=== PATIENT | female | born 1970 | race Caucasian/White ===

== ENCOUNTER 2022-06-02 12:29 | Inpatient (IN) ==
[2022-06-02 13:15] LABS: Basophils # 0.1 10*3/uL (0.0-0.2); Basophils % 1.1 % (0.0-0.8); Eosinophils # 0.2 10*3/uL (0.0-0.87); Eosinophils % 2.5 % (0.00-10.9); Hematocrit 50.1 VOL% (35.7-47.0); Hemoglobin 16.5 GM/DL (12.0-16.0); Immature Granulocytes % 0.1 %; Immature Granulocytes Absolute 0.01 #; Lymphocytes % 37.5 % (21.3-54.2); Mean Corpuscular HGB Conc 32.9 GM/DL (32-36); Mean Platelet Volume 9.2 FL (9.6-12.0); Monocytes # 0.8 10*3/uL (0.11-0.8); Monocytes % 10.2 % (1.7-12.7); Neutrophils % 48.6 % (38.7-73.9); Platelet Count 306 T/CUMM (130-400); Red Blood Count 5.69 MC/CUMM (3.8-5.5); Red Cell Distribution Width 14.6 % (9.3-17.3); White Blood Count 7.9 T/CUMM (4-12)
[2022-06-02 13:30] LABS: Alanine Aminotransferase 19 U/L (13-56); Albumin 3.7 G/DL (3.4-5.0); Alkaline Phosphatase 65 U/L (45-117); Aspartate Amino Transferase 14 U/L (0-37); Bilirubin,Total < 0.39 MG/DL (0.20-1.00); Blood Urea Nitrogen 9 MG/DL (7-18); Calcium 9.1 MG/DL (8.5-10.1); Carbon Dioxide 28 MMOL/L (21-32); Chloride 111 MMOL/L (98-107); Glucose 96 MG/DL (74-106); Osmolality,Calculated 277.4 MOS/KG (273-304); Potassium 3.9 MMOL/L (3.5-5.1); Sodium 140 MMOL/L (136-145); Total Protein 7.8 G/DL (6.4-8.2)
[2022-06-02 13:34] LABS: PT Patient Result 11.1 SECS (10.5-12.0); Partial Thromboplastin Time 28.5 SECS (23.7-32.9)
[2022-06-02 13:51] LABS: Bacteria,Urine Occasional /HPF (Few); Mucus,Urine Occasional /LPF (Occasional); RBC,Urine 6 /HPF (0-4)
[2022-06-02 13:56] LABS: Basophils # 0.1 10*3/uL (0.0-0.2); Basophils % 1.4 % (0.0-0.8); Eosinophils # 0.2 10*3/uL (0.0-0.87); Eosinophils % 2.2 % (0.00-10.9); Hematocrit 46.9 VOL% (35.7-47.0); Hemoglobin 15.6 GM/DL (12.0-16.0); Immature Granulocytes % 0.1 %; Immature Granulocytes Absolute 0.01 #; Lymphocytes # 2.8 10*3/uL (1.4-4.0); Lymphocytes % 36.9 % (21.3-54.2); Mean Corpuscular HGB Conc 33.3 GM/DL (32-36); Mean Corpuscular Volume 87.8 FL (87-102); Mean Platelet Volume 9.4 FL (9.6-12.0); Monocytes # 0.9 10*3/uL (0.11-0.8); Monocytes % 11.3 % (1.7-12.7); Neutrophils % 48.1 % (38.7-73.9); Platelet Count 309 T/CUMM (130-400); Red Blood Count 5.34 MC/CUMM (3.8-5.5); Red Cell Distribution Width 14.6 % (9.3-17.3); White Blood Count 7.7 T/CUMM (4-12)
[2022-06-02 13:56] LABS: Barbiturates Screen,Urine Negative (Negative); Benzodiazepines Screen,Urine Positive (Negative); Bilirubin,Urine Negative (Negative); Blood, Urine Moderate mg/dL (Negative); Cannabinoid Screen,Urine Negative (Negative); Glucose,Urine (UA) Negative (Negative); Ketones,Urine Trace mg/dL (Negative); Nitrite,Urine Negative (Negative); Opiate Screen,Urine Negative (Negative); Phencyclidine Screen,Urine Negative (Negative); Protein,Urine Negative (Negative); Urine Appearance Clear (Clear); Urine Color Yellow (Yellow); Urine Urobilinogen 0.2 eU/dL (<2.0); Urine pH >= 1.0 (4.5-8.0)
[2022-06-02] MEDS ORDERED: SIMETHICONE CHEW 125 MG TABLET PO PRN (16:11)
[2022-06-02] MEDS ORDERED: DOCUSATE SODIUM 100 MG CAPSULE PO PRN (16:11)
[2022-06-02] MEDS ORDERED: ACETAMINOPHEN 325 MG TABLET PO PRN (16:11)
[2022-06-02] MEDS ORDERED: GLUCAGON 1 MG VIAL IM PRN (16:11)
[2022-06-02] MEDS ORDERED: ONDANSETRON 4 MG/2 ML VIAL IV PRN (16:11)
[2022-06-02] MEDS ORDERED: hydrALAZINE 20 MG/1 ML VIAL IV PRN (16:11)
[2022-06-02] MEDS ORDERED: DEXTROSE 10% 250 ML BAG IV PRN (16:23)
[2022-06-02] MEDS ORDERED: FLUTICASONE 50 MCG NASAL SPRAY 16 GM BOTTLE BOTH NARES PRN (16:23)
[2022-06-02] MEDS: CLOPIDOGREL 75 MG TABLET PO SCH (16:43)
[2022-06-02] MEDS: LACTATED RINGERS 1,000 ML IV SCH (16:43)
[2022-06-02] MEDS: ASPIRIN EC 325 MG TABLET PO SCH (16:43)
[2022-06-02] MEDS ORDERED: ALBUTEROL 2.5 MG/3 ML NEB RESP TX PRN (16:44)
[2022-06-02 17:19] LABS: Thyroid Stimulating Hormone 0.711 uIU/ml (0.358-3.74)
[2022-06-02] MEDS: ENOXAPARIN 40 MG/0.4 ML SYRINGE SUBCUT SCH (17:20)
[2022-06-02] MEDS: ROSUVASTATIN 20 MG TABLET PO SCH (20:41)
[2022-06-03] MEDS: LACTATED RINGERS 1,000 ML IV SCH ×2 (03:58→16:49)
[2022-06-03 05:20] LABS: Basophils # 0.1 10*3/uL (0.0-0.2); Basophils % 0.9 % (0.0-0.8); Eosinophils # 0.2 10*3/uL (0.0-0.87); Eosinophils % 2.6 % (0.00-10.9); Hematocrit 42.9 VOL% (35.7-47.0); Immature Granulocytes % 0.2 %; Immature Granulocytes Absolute 0.02 #; Lymphocytes # 4.2 10*3/uL (1.4-4.0); Lymphocytes % 46.9 % (21.3-54.2); Mean Corpuscular HGB Conc 32.6 GM/DL (32-36); Monocytes # 0.7 10*3/uL (0.11-0.8); Monocytes % 7.8 % (1.7-12.7); Neutrophils % 41.6 % (38.7-73.9); Platelet Count 249 T/CUMM (130-400); Red Blood Count 4.82 MC/CUMM (3.8-5.5); Red Cell Distribution Width 14.4 % (9.3-17.3)
[2022-06-03 05:37] LABS: Alanine Aminotransferase 21 U/L (13-56); Albumin 2.9 G/DL (3.4-5.0); Alkaline Phosphatase 59 U/L (45-117); Aspartate Amino Transferase 18 U/L (0-37); Bilirubin,Total < 0.39 MG/DL (0.20-1.00); Blood Urea Nitrogen 12 MG/DL (7-18); Calcium 8.1 MG/DL (8.5-10.1); Carbon Dioxide 28 MMOL/L (21-32); Chloride 109 MMOL/L (98-107); Cholesterol 68 MG/DL (50-200); Glucose 103 MG/DL (74-106); HDL Cholesterol 23 MG/DL (40-60); Osmolality,Calculated 280.3 MOS/KG (273-304); Potassium 3.9 MMOL/L (3.5-5.1); Risk Ratio 2.96; Sodium 141 MMOL/L (136-145); Total Protein 6.4 G/DL (6.4-8.2); Triglycerides 183 MG/DL (2-150); VLDL Cholesterol 36.6 MG/DL
[2022-06-03] MEDS: CLOPIDOGREL 75 MG TABLET PO SCH (09:08)
[2022-06-03] MEDS: MAGNESIUM OXIDE 400 MG TABLET PO SCH (09:09)
[2022-06-03] MEDS: MONTELUKAST 10 MG TABLET PO SCH (09:09)
[2022-06-03] MEDS: LOSARTAN 50 MG TABLET PO SCH (09:09)
[2022-06-03] MEDS: ASPIRIN EC 325 MG TABLET PO SCH (09:09)
[2022-06-03] MEDS: METOPROLOL SUCCINATE XL 50 MG TABLET PO SCH (09:09)
[2022-06-03] MEDS: PANTOPRAZOLE 40 MG TABLET PO SCH (09:09)
[2022-06-03] MEDS: ENOXAPARIN 40 MG/0.4 ML SYRINGE SUBCUT SCH (18:37)
[2022-06-03] MEDS: ROSUVASTATIN 20 MG TABLET PO SCH (21:38)
[2022-06-04] MEDS: LACTATED RINGERS 1,000 ML IV SCH (03:54)
[2022-06-04 05:26] LABS: Basophils # 0.1 10*3/uL (0.0-0.2); Basophils % 0.9 % (0.0-0.8); Eosinophils # 0.3 10*3/uL (0.0-0.87); Eosinophils % 3.3 % (0.00-10.9); Hemoglobin 14.1 GM/DL (12.0-16.0); Immature Granulocytes % 0.2 %; Immature Granulocytes Absolute 0.02 #; Lymphocytes # 3.6 10*3/uL (1.4-4.0); Mean Corpuscular HGB Conc 32.8 GM/DL (32-36); Mean Corpuscular Volume 87.6 FL (87-102); Mean Platelet Volume 9.5 FL (9.6-12.0); Monocytes # 0.7 10*3/uL (0.11-0.8); Monocytes % 7.8 % (1.7-12.7); Neutrophils % 45.8 % (38.7-73.9); Platelet Count 241 T/CUMM (130-400); Red Blood Count 4.91 MC/CUMM (3.8-5.5); Red Cell Distribution Width 13.9 % (9.3-17.3); White Blood Count 8.5 T/CUMM (4-12)
[2022-06-04 06:02] LABS: Calcium 8.6 MG/DL (8.5-10.1); Osmolality,Calculated 279.3 MOS/KG (273-304); Potassium 4.3 MMOL/L (3.5-5.1)
[2022-06-04] MEDS: PANTOPRAZOLE 40 MG TABLET PO SCH (10:28)
[2022-06-04] MEDS: LOSARTAN 50 MG TABLET PO SCH (10:28)
[2022-06-04] MEDS: ASPIRIN EC 325 MG TABLET PO SCH (10:28)
[2022-06-04] MEDS: METOPROLOL SUCCINATE XL 50 MG TABLET PO SCH (10:28)
[2022-06-04] MEDS: CLOPIDOGREL 75 MG TABLET PO SCH (10:28)
[2022-06-04] MEDS: MAGNESIUM OXIDE 400 MG TABLET PO SCH (10:29)
[2022-06-04] MEDS: MONTELUKAST 10 MG TABLET PO SCH (10:29)
[2022-06-04] MEDS ORDERED: LACTULOSE 20 GM/30 ML UDCUP PO ONE (12:06)
[2022-06-04 15:40] VITALS: BP 148/80
[2022-06-05] MEDS ORDERED: ASPIRIN EC 81 MG TABLET PO SCH (09:00)
== END 2022-06-04 13:17 | disposition home health service (06) | DRG 69 ==
LOC: N.ED 12:29 → SUATTDRO 16:11 → N.EDINP 16:11 → N.TELEN 17:07
PROVIDERS: ADMIT Internal Medicine; ATTEND Emergency Medicine